=== PATIENT | male | born 1995 | race Caucasian/White ===

== ENCOUNTER 2021-07-26 18:38 | Outpatient (REF) | payer BC, SELFPAY ==
[2021-07-28 12:05] LABS: COVID-19 RT-PCR UVMMC Result Negative (Negative)
== END 2021-07-26 18:39 | disposition home or self-care (01) ==
LOC: NCHCN 18:38
PROVIDERS: Visit Provider Nurse Practitioner Family
DX: Z20.822 Contact with and (suspected) exposure to COVID-19 (principal)
CPT/HCPCS: U0003

== ENCOUNTER 2022-03-09 00:25 | Emergency (ER) | payer BC, SELFPAY ==
[2022-03-09] VITALS (90 sets, daily range): BP systolic 103–149; BP diastolic 55–83; PULSE 63–101; RESP 13–26; TEMP 36.2–36.8; O2SAT 95–99
--- NOTE | 2022-03-09 00:30 | RT.EKG_ITS ---
APPROVED REPORT Exam: Resting ECG Reason for Exam: chest pain Patient Location: E HR:84 bpm ECG Measurements Heart Rate 84 AXIS AZ 155 P 63 QRSd 99 QRS -45 QT 351 T 36 QTc 415 Conclusion Sinus rhythm...normal P axis, V-rate 60- 99 LAD, consider left anterior fascicular block...axis(240,-40), S>R II III aVF
--- NOTE | 2022-03-09 00:30 | RT.EKG_ITS ---
APPROVED REPORT Exam: Resting ECG Reason for Exam: chest pain Patient Location: E HR:76 bpm ECG Measurements Heart Rate 76 AXIS TN 169 P 33 QRSd 97 QRS -32 QT 362 T 31 QTc 407 Conclusion Sinus rhythm...normal P axis, V-rate 60- 99 Inferior infarct, old...Q >35mS, II III aVF
--- NOTE | 2022-03-09 00:45 | DI.RAD_ITS ---
Exam(s) XR PORTABLE CHEST AP EXAM: XR PORTABLE CHEST AP CLINICAL HISTORY: chest pain. TECHNIQUE: 2D digital imaging was performed. COMPARISON: No exams were available for comparison FINDINGS: LUNGS: Clear. No pleural abnormality seen. HEART: Normal. MEDIASTINUM: Normal. OTHER FINDINGS: None. IMPRESSION: No acute pulmonary findings. DATA REPOSITORY: RADIATION DOSE DELIVERED: Total DLP
--- NOTE | 2022-03-09 00:59 | ED.GENADUL_ITS ---
Discharge Plan Disposition Patient Disposition: HOME Condition: Stable Discharge Details Clinical Impression: Chest pain, Elevated troponin Primary Care Provider: Ayaz Neal ED Provider: Berlin Whitfield Home Meds and New Rx's Prescriptions: Continued albuterol sulfate 90 mcg/actuation HFA aerosol inhaler 2 puff inhalation Q6H PRN (Reason: shortness of breath or wheezing) Qty: 6.7 0RF Rx Instructions: 2 puffs every 6 hours as needed for cough, wheeze, and/or SOB Discharge Instructions Additional Instructions: It is recommended that you follow-up with cardiology early next week. Please rest at home with no exertional activities until cleared by cardiology. Please take aspirin 325 mg daily. Please contact your primary care physician to arrange follow-up. Return to the ER immediately for any worsening or new concerning symptoms. If you develop any return of chest pain or shortness of breath please call [phone] return immediately for reassessment. Referrals: Ayaz Neal, [employer]PERATOR [Primary Care Provider] - Kathie Lamb MD [ [facility] STAFF PHYSICIAN] - Discharge Data Discharge Date/Time-TO BE ENTERED AT DEPARTURE: 03/09/22 09:14 Medical Decision Making 100??27-year-old male with no medical problems here with mild left anterior ch est discomfort started yesterday evening and has persisted. He has had recent nausea, vomiting, loose stool, fever and headache over the past few days. Consider ACS. EKG was reviewed and interpreted by me: Sinus rhythm, left axis deviation, no STEMI, no AL depression, nondiagnostic. Plan to check troponin. PERC applies. Consider pneumothorax. I will check chest x-ray. 239 -- cxr reviewed and interpreted by radiology: no acute findings Labs reviewed: troponin elevated. Covid negative. Concern for myocarditis given recent illness vs NSTEMI. Patient reassessed: continues to have mild discomfort. Will give nitro SL, start heparin infusion and give asa 325mg. Plan to admit for continued treatment. 250 -- I spoke with Dr. Awad, car electronics installer hospitalist, discussed ED presentation and course. He requests patient be held in the ED for delta troponin and recommends toradol and holding ACS treatment. -- Repeat troponin elevated minimally. 745 -- Patient was evaluated by hospitalist and cardiology consult was obtained by Dr. Garcia. Dr. Awad will discharge at recommendation of cardiology with close followup with cardiology next week. Lab Data Lab results reviewed: Yes I reviewed the patient's lab results. Labs: Laboratory Tests Range/Units 03/09/22 03/09/22 03/09/22 01:05 01:22 01:22 WBC (4.4-10.8) 10^3/uL 10.20 RBC (4.36-5.78) 10^6/uL 5.33 Hgb (13.5-17.5) g/dL 15.4 Hct (40.0-50.0) % 45.8 MCV (80-95) fL 86 MCH (27.0-33.0) pg 28.9 MCHC (32.0-36.0) % 33.6 RDW (11.8-14.1) % 12.2 Plt Count (130-400) 10^3/uL 269 MPV (8.0-11.0) fL 8.9 Immature Gran % 0.2 Neutrophils % 65.1 Lymphocytes % 18.9 Monocytes % 14.4 Eosinophils % 1.0 Basophils % 0.4 Nucleated RBC % (0.0-0.3) % 0.0 Absolute Neutrophils (1.2-6.7) 10^3/uL 6.64 Absolute Lymphocytes (1.2-3.4) 10^3/uL 1.93 Absolute Monocytes (0.1-0.8) 10^3/uL 1.47 H Absolute Eosinophils (0.0-0.7) 10^3/uL 0.10 Absolute Basophils (0.0-0.2) 10^3/uL 0.04 Sodium (136-145) mmol/L 139 Potassium (3.5-5.1) mmol/L 3.6 Chloride (98-107) mmol/L 102 Carbon Dioxide (21.0-32.0) mmol/L 28.1 Anion Gap (3-11) mmol/L 8.9 BUN (7-18) mg/dL 23 H Creatinine (0.70-1.30) mg/dL 1.0 Estimated GFR/1.73 m2 (mL/min/1.73m2) >= 60.00 Glucose (74-106) mg/dL 102 Calcium (8.5-10.1) mg/dL 8.5 Total Bilirubin (0.2-1.0) mg/dL 0.3 AST (15-37) U/L 26 ALT (16-63) U/L 57 Alkaline Phosphatase (46-116) U/L 118 H Troponin I (<or=60) ng/L 86 H* Total Protein (6.4-8.2) g/dL 7.4 Albumin (3.4-5.0) g/dL 3.6 COVID-19 Source Nasopharynx SARS-CoV-2 (PCR) (Negative) Negative Influenza Type A (PCR) (Negative) Negative Influenza Type B (PCR) (Negative) Negative RSV (PCR) (Negative) Negative HPI General Mode of arrival: ambulatory . Date/Time Provider Initiated Documentation: 03/09/22 00:27 . Limitations to Documentation: no limitations . Information obtained by: patient . HPI Narrative: 27-year-old male with no medical problems presents with chief complaint of chest discomfort. Patient notes that he started develop chest discomfort around 6 PM yesterday. Pain has persisted. Pain is mild, localized to left anterior chest, described as pressure. Patient also has some mild discomfort in his left arm. Patient denies associated shortness of breath. Patient does state that he has not been feeling well this week. He has had a headache that came on Friday. He then developed diarrhea which she had for a few days. He was feeling generally unwell and did have a nausea with an episode of vomiting. Patient also notes fever during this time. He took off from work for a couple days and then was feeling better and able to return to work. Patient is not vaccinated for COVID. He did take 2 rapid antigen test today that were negative. Related Data Home Medications Medication Instructions Recorded Confirmed albuterol sulfate 90 mcg/actuation 2 puff inhalation Q6H PRN 07/26/21 03/13/22 aerosol inhaler shortness of breath or wheezing #6.7 grams Previous Rx's Medication Instructions Recorded albuterol sulfate 90 mcg/actuation 2 puff inhalation Q6H PRN 07/26/21 aerosol inhaler shortness of breath or wheezing #6.7 grams Allergies Allergy/AdvReac Type Severity Reaction Status Date / Time No Known Allergies Allergy Verified 03/13/22 11:42 General Stated Complaint: Chest Pain VON: 2 Review of Systems All systems reviewed & are unremarkable except as noted in HPI and below Constitutional Constitutional: Denies fever(s) Cardiovascular Cardiovascular: Reports as per HPI Gastrointestinal Gastrointestinal: Reports as per HPI PFSH All Active Problems Chest pain (Acute) Elevated troponin (Acute) Overweight (Acute) Family History Mother No problems noted. Father No problems noted. Sister No problems noted. Social History Smoking/Tobacco Use Status: Never Second Hand Exposure: Yes Smoking risk assessment performed?: Yes Alcohol Intake: current Alcohol Intake frequency: holidays/special occasions only Alcohol type: beer Drug use: Never Substance use type: does not use Caregiver/Support person: Yes Household members: spouse and children Housing: house Communication Needs: None Do you need help understanding health information?: Often Pets and animals: Yes Pets and animals: cat(s), dog(s) and horse(s) Sexually active: Yes Do you think of yourself as: straight/heterosexual Current gender identity: male What is your relationship status?: How often do you talk on the phone with friends or family?: three or more times per week How often do you get together with friends or relatives?: once per week How often do you attend religious or faith services?: decline to answer Do you belong to any clubs or organized social groups?: no Panel score (0-1 are the most socially isolated patients): 2 What type of physical activity do you participate in: other Details: fishing,hunting Duration: 15-30 minutes/day Frequency: 1-2 times per week Heavenly/Samaritan: None Special heavenly needs: No Seatbelt use: always Helmet use: Yes Helmet use: always Drive intox or ride w/intox shuttle driver: No Do you feel safe at home: Yes Do you feel safe in your relationship?: Yes Exam Const General: cooperative and no acute distress HENMT Mouth: moist mucous membranes Eyes Conjunctivae: normal conjunctivae Sclera: normal sclerae Neck Neck: trachea midline and supple Resp Auscultation: clear to auscultation bilaterally, no rales, no rhonchi and no wheezes Cardio Rate: regular rate and not tachycardic Rhythm: regular rhythm Heart Sounds: S1 normal, S2 normal, no gallops, no murmurs and no rubs GI Palpation: soft, not firm, no guarding, no masses, not rigid and nontender Skin General skin exam: no rashes or lesions noted Neuro General: patient alert, patient awake, patient oriented x3 and tone normal Extrem General: no calf tenderness and no edema Psych Appearance: grossly normal Mental Status: mental status grossly normal Speech and Movement: speech and movement normal Course Vital Signs Vital signs: Vital Signs Temperature 36.2 C L 03/09/22 00:31 Pulse 92 H 03/09/22 00:31 Respiratory Rate 16 03/09/22 00:31 Blood Pressure 138/81 03/09/22 00:31 Pulse Oximetry 97 03/09/22 00:31 Temperature 36.2 C L 03/09/22 00:31 Temperature Source Skin 03/09/22 00:31 Pulse 92 H 03/09/22 00:31 Respiratory Rate 16 03/09/22 00:34 Respiratory Effort Non-Labored 03/09/22 00:34 Respiratory Depth Normal 03/09/22 00:34 Respiratory Pattern Normal 03/09/22 00:34 Blood Pressure 138/81 03/09/22 00:31 Blood Pressure Position Sitting 03/09/22 00:31 Pulse Oximetry 97 03/09/22 00:31 Oxygen Delivery Method Room Air 03/09/22 00:31 Oxygen Flow Rate 0 03/09/22 00:31 Pain Level 3 03/09/22 00:34 Critical Care Time Critical Care Time Critical Care Time: Yes Total Critical Care Time: 45 Attestation: I spent greater than 45 minutes addressing this patient's immediate life threats. Please see MDM section of note. This time was spent engaged in work directly related to the patient's care, exclusive of separate procedures, and failure to initiate these interventions would have likely resulted in clinically significant or life threatening deterioration in the patient's condition. PAWSS Have you Been Recently Intoxicated or Drunk Within the Last 30 days?: No Have you Ever Experienced Previous Episodes of Alcohol Withdrawal?: No Have you ever Experienced Withdrawal Seizures?: No Have you ever Experienced Delirium Tremens(DT)s?: No Have you ever undergone Alcohol Rehabilitation Treatment (i.e, inpt ot outpatient treatment programs)?: No Have you ever Experienced Blackouts?: No Have you ever Combined Alcohol with other Downers within the last 90 days?: No Have you ever Combined Alcohol with any other Substance of Abuse during the last 90 days?: No Positive Blood Alcohol level on Presentation? [PCS.BAL]: No Evidence of Increased Autonomic Activity (i.e. HR>120, tremor, sweating, agitation, nausea)?: No Result: 0
[2022-03-09 01:33] LABS: Abs Immature Grans 0.02 10^3/uL (0.0-0.06); Absolute Basophil Count 0.04 10^3/uL (0.0-0.2); Absolute Lymphocyte Count 1.93 10^3/uL (1.2-3.4); Absolute Monocyte Count 1.47 10^3/uL (0.1-0.8); Absolute Neutrophil Count 6.64 10^3/uL (1.2-6.7); Basophils % 0.4; HCT 45.8 % (40.0-50.0); HGB 15.4 g/dL (13.5-17.5); Immature Grans % 0.2; Lymphocytes % 18.9; MCH 28.9 pg (27.0-33.0); MCHC 33.6 % (32.0-36.0); MCV 86 fL (80-95); MPV 8.9 fL (8.0-11.0); Monocytes % 14.4; Neutrophils % 65.1; Platelet Count 269 10^3/uL (130-400); RBC 5.33 10^6/uL (4.36-5.78); RDW 12.2 % (11.8-14.1); RDW-SD 38.5 fL
[2022-03-09 02:16] LABS: ALT 57 U/L (16-63); AST 26 U/L (15-37); Albumin 3.6 g/dL (3.4-5.0); Alkaline Phosphatase 118 U/L (46-116); Anion Gap 8.9 mmol/L (3-11); BUN 23 mg/dL (7-18); Bilirubin, Total 0.3 mg/dL (0.2-1.0); CO2 28.1 mmol/L (21.0-32.0); Calcium 8.5 mg/dL (8.5-10.1); Chloride 102 mmol/L (98-107); Glucose 102 mg/dL (74-106); Potassium 3.6 mmol/L (3.5-5.1); Sodium 139 mmol/L (136-145); Total Protein 7.4 g/dL (6.4-8.2)
[2022-03-09 02:19] LABS: Troponin I 86 ng/L (<or=60)
[2022-03-09 02:19] LABS: COVID-19 PCR Negative (Negative); Influenza A PCR Negative (Negative); Influenza B PCR Negative (Negative); RSV PCR Negative (Negative)
--- NOTE | 2022-03-09 02:28 | DI.VRAD_ITS ---
PROCEDURE INFORMATION: Exam: XR Chest Exam date and time: 03/09/2022 1:22 AM Age: 27 years old Clinical indication: Chest wall pain; Additional info: Chest pain TECHNIQUE: Imaging protocol: XR of the chest. Views: 1 view. COMPARISON: No relevant prior studies available. FINDINGS: Lungs: Unremarkable. No consolidation. Pleural spaces: Unremarkable. No pleural effusion. No pneumothorax. Heart/Mediastinum: Unremarkable. No cardiomegaly. Bones/joints: Unremarkable. IMPRESSION: No acute findings. Dictated and Authenticated by: Irais Vieyra MD. Ordering:RODRIGO Slade MD
[2022-03-09 02:30] LABS: Source Nasopharynx
[2022-03-09] MEDS: Aspirin 325 MG TAB PO (02:47)
[2022-03-09] MEDS: nitroGLYcerin 0.4 MG TAB SL (02:47)
[2022-03-09 03:01] LABS: Lab Add On Test DONE
[2022-03-09 03:04] LABS: ESR 5 mm/hr (0-15)
[2022-03-09] MEDS: Normal Saline Flush 10 ML SYR IVP (03:43)
[2022-03-09] MEDS: Ketorolac 30 MG/ML VIAL IVP (03:43)
[2022-03-09 03:47] LABS: PTT Activated 27.6 sec (21.0-27.5)
[2022-03-09 05:40] LABS: Troponin I 98 ng/L (<or=60)
[2022-03-09 07:55] LABS: Troponin I 96 ng/L (<or=60)
--- NOTE | 2022-03-09 07:56 | W.MEDCONSULT ---
Date of service: 03/09/22 Time of Service: 07:57 Assessment and Plan Assessment and plan (1) Chest pain: Status: Acute Assessment and plan: Nonischemic chest pain probably due to myocarditis related to recent GI viral illness. I faxed over his EKGs and discussed the case with [facility] cardiology speaking with Dr. Ciara Huynh who reviewed the EKG's and discussed the case with me. She feels that he has a mild myocarditis from his recent GI viral illness, despite the lack of elevated inflammatory markers (i.e. WBC, ESR). She did not see any signs of pericarditis on his EKG nor did she see any evidence for ischemia or injury pattern. She agreed with me that we could send this gentleman home w/ close cardiology follow up next week w/ a formal echocardiogram next week, however, with the caveat that should he get any further chest pain/pressure/discomfort or dyspnea, palpitations, lightheadedness or dizziness then he should immediately return to the ED. I discussed this w/ Dr. Berlin Whitfield from our ED. Dr. Slade and I agree that it would be prudent for the patient to remain on an aspirin 81 mg daily. I spoke w/ Mendel in our radiology department to see if we had a protocol for CT coronary angiography and we do not. Furthermore we have a limited supply of iv contrast d/t national shortage. Our ED will set him up for follow up echocardiogram next week and make referral for cardiology close follow up in the next week. (2) Elevated troponin: Status: Acute Assessment and plan: probable myocarditis secondary to receNT GI viral gastroenteritis. 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 Patient developed diarrhea 3 days prior to his presentation to the emergency department not associated with melena or hematochezia no fever or rigors and no shortness of breath or chest discomfort. His 2-year-old daughter has similar GI illness. The patient had no URI type symptoms such as nasal congestion or drainage or sinus pressure or earache. Last night around 6 PM he developed nonexertional chest tightness that radiated across the left side of his chest that waxed and waned from 6 PM until it was relieved in the emergency department around 3 AM. There was no shortness of breath nor any nausea or diaphoresis. Nor did he have any palpitations. The discomfort traveled into his left arm. No pleuritic component to his pain and no relief or worsening w/ activity or with lying/or sitting forward. There is no sharp ripping sensation in his chest. No radiation to his back. Despite his work with heavy machinery and mechanical work for the [employer] he has never had any exertional chest pain or pressure. He has no history of diabetes or hypertension or smoking history. Did have a maternal uncle in his 50s from an NH. Work-up in the ED included routine labs, nasal swab PCR for COVID-19 as well as RSV and influenza all of which were negative. CBC was within normal limits, CMP was within normal limits. Initial troponin I was elevated at 86 ng/L which was drawn at 1:22 AM with a subsequent troponin I level at 4:30 AM and 7:25 AM also came back elevated but plateaued at 98 and 96. Serial EKGs were obtained at 12:35 AM and again at 4:35 AM. Rhythm is sinus rhythm with left axis deviation but no ischemic or injury pattern is seen. Chest x-ray was read as showing no acute findings. Patient was treated with aspirin 325 mg along with a single sublingual nitroglycerin tablet and subsequently given Toradol 30 mg IV push. The aspirin and nitroglycerin were given at 2:47 AM whereas the ketorolac did not get infused until 3:43 AM. Patient reports relief of his discomfort but 20 to 30 minutes after aspirin and nitroglycerin. He has been pain-free ever since. Review of Systems All systems reviewed & are unremarkable except as noted in HPI and below PFSH All Active Problems Chest pain (Acute) Elevated troponin (Acute) Overweight (Acute) Family History Mother No problems noted. Father No problems noted. Sister No problems noted. Social History Smoking/Tobacco Use Status: Never Second Hand Exposure: Yes Smoking risk assessment performed?: Yes Alcohol Intake: current Alcohol Intake frequency: holidays/special occasions only Alcohol type: beer Drug use: Never Substance use type: does not use Caregiver/Support person: Yes Household members: spouse and children Housing: house Communication Needs: None Do you need help understanding health information?: Often Pets and animals: Yes Pets and animals: cat(s), dog(s) and horse(s) Sexually active: Yes Do you think of yourself as: straight/heterosexual Current gender identity: male What is your relationship status?: How often do you talk on the phone with friends or family?: three or more times per week How often do you get together with friends or relatives?: once per week How often do you attend sabianist or christianity services?: decline to answer Do you belong to any clubs or organized social groups?: no Panel score (0-1 are the most socially isolated patients): 2 What type of physical activity do you participate in: other Details: fishing,hunting Duration: 15-30 minutes/day Frequency: 1-2 times per week Heavenly/Temple: None Special heavenly needs: No Seatbelt use: always Helmet use: Yes Helmet use: always Drive intox or ride w/intox refuse driver: No Do you feel safe at home: Yes Do you feel safe in your relationship?: Yes Exam Narrative Exam Narrative: Young male who is sitting up on an emergency room gurney resting in no discomfort or distress. His vital signs are stable with blood pressure throughout the night and into the morning running in the 110s to 120s with the highest being 149/74 at 2:46 AM currently blood pressures running 124/69. Heart rate has been in the 70s sinus rhythm with no arrhythmias overnight. Highest heart rate was 97 at 2:46 AM. His pulse oximetry is running 97 to 98%. He is remained on room air. He is afebrile at 36.2. His weight is 77.1 kg. HEENT is unremarkable Neck is supple with normal carotid pulses no JVD no bruits Lungs are clear to auscultation Heart is regular rate and rhythm with normal S1 and S2 heart tones with no murmur rub gallop and no palpable thrill or heave. I cannot elicit any kind of a rub even with having him leaning forward. Abdomen soft nontender normal bowel sounds no bruits Pulses are equal. Results Last Vital Signs Temp 36.2 C L 03/09/22 00:31 Pulse 70 03/09/22 07:45 Resp 22 03/09/22 07:50 BP 118/68 03/09/22 07:45 Pulse Ox 97 03/09/22 06:10 Labs Result diagrams: 03/09/22 01:22 03/09/22 01:22 Labs: Laboratory Results - last 24 hr 03/09/22 03/09/22 03/09/22 01:05 01:22 01:22 WBC RBC Hgb Hct MCV MCH MCHC RDW Plt Count MPV Immature Gran % Neutrophils % Lymphocytes % Monocytes % Eosinophils % Basophils % Nucleated RBC % Absolute Neutrophils Absolute Lymphocytes Absolute Monocytes Absolute Eosinophils Absolute Basophils ESR APTT Sodium 139 Potassium 3.6 Chloride 102 Carbon Dioxide 28.1 Anion Gap 8.9 BUN 23 H Creatinine 1.0 Estimated GFR/1.73 m2 >= 60.00 Glucose 102 Calcium 8.5 Total Bilirubin 0.3 AST 26 ALT 57 Alkaline Phosphatase 118 H Troponin I Cancelled 86 H* Total Protein 7.4 Albumin 3.6 COVID-19 Source Nasopharynx SARS-CoV-2 (PCR) Negative Influenza Type A (PCR) Negative Influenza Type B (PCR) Negative RSV (PCR) Negative Add-On Test Request 03/09/22 03/09/22 03/09/22 01:22 01:22 01:22 WBC 10.20 RBC 5.33 Hgb 15.4 Hct 45.8 MCV 86 MCH 28.9 MCHC 33.6 RDW 12.2 Plt Count 269 MPV 8.9 Immature Gran % 0.2 Neutrophils % 65.1 Lymphocytes % 18.9 Monocytes % 14.4 Eosinophils % 1.0 Basophils % 0.4 Nucleated RBC % 0.0 Absolute Neutrophils 6.64 Absolute Lymphocytes 1.93 Absolute Monocytes 1.47 H Absolute Eosinophils 0.10 Absolute Basophils 0.04 ESR 5 APTT Sodium Potassium Chloride Carbon Dioxide Anion Gap BUN Creatinine Estimated GFR/1.73 m2 Glucose Calcium Total Bilirubin AST ALT Alkaline Phosphatase Troponin I Total Protein Albumin COVID-19 Source SARS-CoV-2 (PCR) Influenza Type A (PCR) Influenza Type B (PCR) RSV (PCR) Add-On Test Request DONE 03/09/22 03/09/22 03/09/22 03:19 04:30 05:52 WBC RBC Hgb Hct MCV MCH MCHC RDW Plt Count MPV Immature Gran % Neutrophils % Lymphocytes % Monocytes % Eosinophils % Basophils % Nucleated RBC % Absolute Neutrophils Absolute Lymphocytes Absolute Monocytes Absolute Eosinophils Absolute Basophils ESR APTT 27.6 H Sodium Potassium Chloride Carbon Dioxide Anion Gap BUN Creatinine Estimated GFR/1.73 m2 Glucose Calcium Total Bilirubin AST ALT Alkaline Phosphatase Troponin I 98 H* Cancelled Total Protein Albumin COVID-19 Source SARS-CoV-2 (PCR) Influenza Type A (PCR) Influenza Type B (PCR) RSV (PCR) Add-On Test Request 03/09/22 07:25 WBC RBC Hgb Hct MCV MCH MCHC RDW Plt Count MPV Immature Gran % Neutrophils % Lymphocytes % Monocytes % Eosinophils % Basophils % Nucleated RBC % Absolute Neutrophils Absolute Lymphocytes Absolute Monocytes Absolute Eosinophils Absolute Basophils ESR APTT Sodium Potassium Chloride Carbon Dioxide Anion Gap BUN Creatinine Estimated GFR/1.73 m2 Glucose Calcium Total Bilirubin AST ALT Alkaline Phosphatase Troponin I 96 H* Total Protein Albumin COVID-19 Source SARS-CoV-2 (PCR) Influenza Type A (PCR) Influenza Type B (PCR) RSV (PCR) Add-On Test Request Point of Care Ultrasound Note: [id number] echocardiogram was performed obtaining views of the parasternal long axis, parasternal short axis, apical four-chamber, apical 5 chamber, subxiphoid views. No pericardial effusion was seen. Patient had normal LV function seen in multiple views with no regional wall motion abnormalities. Parasternal short axis was seen in the mid ventricular level at the papillary level and then scanned down through the apex and then up towards the base of the heart. No aortic aneurysm was seen. RV function. To be normal and RV size was normal. IVC was normal. Color Doppler interrogation of the aortic and mitral valve did not reveal any regurgitation.
--- NOTE | 2022-03-09 07:59 | NUR.NOTE ---
critical Troponin result 96 given by Shel[place] at [address] Roseann Orozco notified.
--- NOTE | 2022-03-09 08:02 | NUR.NOTE ---
consultation to Dr. Lamb-director revenue, Myocarditis vs. ACS, early week of 03/10/22 ALOB
== END 2022-03-09 09:14 | disposition home or self-care (01) ==
PROVIDERS: Internal Medicine; Emergency Provider Student in an Organized Health Care Education/Training Program; PCP Nurse Practitioner Family
DX: R07.9 Chest pain, unspecified (principal); R79.89 Other specified abnormal findings of blood chemistry
CPT/HCPCS: 36415; 80053; 85652; 87637; 93005; 96374; 99283; 71045; 84484; 85025; 85730; 93010; 99254; 99281; J1885

== ENCOUNTER → 2022-04-05 00:51 | Outpatient (CLI) | payer BC, SELFPAY ==
--- NOTE | 2022-04-05 13:48 | DI.US_ITS ---
APPROVED REPORT EXAM: Comprehensive 2D, Doppler, and color-flow Echocardiogram Patient Location: Out-Patient Enamel Cracker: Mandie Chow RDCS (AE) Indications: Recent chest pain, Elevated troponin Other Information Study Quality: Good Conclusion Normal left ventricular wall thickness and chamber size. Estimated ejection fraction is 60%. Wall m otion is normal Normal right ventricular size and systolic function Both atria are normal in size There is no structural or hemodynamically significant valvular disease Wall motion Left Ventricle The left ventricle is normal size. The left ventricular systolic function is normal. The left ventric ular ejection fraction is within the normal range. There is normal left ventricular wall thickness. T here is normal LV segmental wall motion. There is no ventricular septal defect visualized. LVEF is 60 %. Right Ventricle The right ventricle is normal size. The right ventricular systolic function is normal. Atria The left atrium size is normal. The right atrium size is normal. The interatrial septum is intact wit h no evidence for an atrial septal defect. Aortic Valve The aortic valve is normal in structure. There is no aortic valvular stenosis. No aortic regurgitatio n is present. Mitral Valve The mitral valve is normal in structure. No evidence of mitral valve stenosis. Trace mitral regurgita tion. Tricuspid Valve The tricuspid valve is normal in structure. There is no tricuspid valve stenosis. Trace tricuspid reg urgitation. Unable to assess PA pressure. Pulmonic Valve The pulmonary valve is normal in structure. There is no pulmonic valvular stenosis. Trace pulmonic re gurgitation. Great Vessels The aortic root is normal in size. The ascending aorta is normal in size. Aortic arch is normal in ca liber. IVC is normal in size and collapses >50% with inspiration. Pericardium There is no pericardial effusion. 2D Dimensions IVSD d PLAX 0.91 cm M: 0.6-1.2 LV Vol A2C d MOD 101.3 mL LVPW d PLAX 0.91 cm M: 0.6 - 1.2 LV Vol A4C d MOD 117.4 mL LVID d PLAX 5.02 cm M: 4.2 - 5.8 LA vol/ BSA A2C s A-L 30.6 mL/m2 LVDs 3.30 cm M: 2.5 - 4.0 LA vol/ BSA A4C s A-L 25.9 mL/m2 Ao Root d 2.98 cm M: 3.1 - 3.7 LA Vol/ BSA Biplane s A-L 28.2 mL/m2 RA Area A4C 14.46 cm2 LA Area A4C s MOD 16.11 cm2 RA Vol/ BSA A4C s A-L 22.2 mL/m2 LA Area A2C s MOD 17.51 cm2 Ao Asc Diam d 2.79 cm M: 2.6 - 3.4 LV EF A4C MOD 60.6 % LV EF Teichholz 62.2 % LV EF A2C MOD 59.6 % LVEF (Rhoades's) 59.87 % M: 52 - 72 LV EF Biplane MOD 59.9 % LV Volume 89.82 mL M: 62 - 150 SV 65.19 mL LV Volume Index 58.32 mL/m2 M: 34 - 74 SV Index 42.35 mL/m2 LV Vol Biplane MOD 108.9 mL FS 33.65 % M-Mode TAPSE 2.68 cm (M/F) >1.7 LV Diastology MV E' medial 0.133 (>0.07 m/s) E/A Ratio 1.5 LV E/e MED 5.70 (<14) MV E Vmax 0.76 (0.4-1.3 m/s) MV E' lateral 0.164 (>0.1 m/s) MV A Vmax 0.50 (0.4-1.3 m/s) LV E/e LAT 4.65 (<14) MV E/A Ratio 1.42 MV E/E' medial 5.73 MV E/E' lateral 4.66 Aortic Valve LVOT Area 3.61 cm2 AoV Area Vmax 2.94 cm2 LVOT Vmax 1.15 m/s AoV Area/ BSA (Vmax) 1.91 cm2/m2 LVOT Mean Luis Enrique. 0.69 m/s SB Mean Luis Enrique. 2.52 cm2 LVOT Peak Grad 5.3 mmHg SB Mean Luis Enrique. Index 1.64 cm2/m2 LVOT Mean Grad 2.4 mmHg LVOT VTI 0.216 m LVOT Diam s 2.10 cm AoV Vmax 1.41 m/s Velocity Ratio 0.81 AoV Mean Luis Enrique. 0.99 m/s AoV Peak Grad 7.9 mmHg LVOT SV 77.72 mL AoV Mean Grad 4.4 mmHg AoV VTI 0.237 m AoV Area VTI 3.28 cm2 AoV Area/ BSA (VTI) 2.13 cm/m2 Mitral Valve MV DT 257 (160-240 msec) MV PHT 75 msec MV Area PHT 2.95 cm2 MV VTI 0.247 m MV Area VTI 3.15 (4.0-6.0 cm2) Pulmonary Valve PV Vmax 0.99 (0.5-1.5 m/s) RVOT Peak Gr. 2.70 mmHg PV Peak Grad 3.9 mmHg RVOT Mean Gr. 1.25 mmHg PV Mean Grad 2.0 mmHg RVOT VTI 0.141 m PV VTI 0.195 m RVOT Vmax 0.82 m/s
== END ==
PROVIDERS: PCP Nurse Practitioner Family; Visit Provider Nurse Practitioner Family
DX: R07.9 Chest pain, unspecified (principal); R77.8 Other specified abnormalities of plasma proteins
CPT/HCPCS: 93306

== ENCOUNTER 2022-04-16 02:34 | Outpatient (CLI) | payer BC, SELFPAY ==
[2022-04-16 13:14] LABS: Calculated LDL 146 mg/dL (<100); Cholesterol 208 mg/dL (<200); HDL Cholesterol 50 mg/dL (40-60); Triglyceride 62 mg/dL (<150)
[2022-04-16 13:20] LABS: Hemoglobin A1C 5.6 % (<5.7)
== END 2022-04-16 02:35 | disposition home or self-care (01) ==
LOC: LOS 02:34
PROVIDERS: PCP Nurse Practitioner Family; Visit Provider Nurse Practitioner Family
DX: Z13.220 Encounter for screening for lipoid disorders (principal); Z13.1 Encounter for screening for diabetes mellitus
CPT/HCPCS: 36415; 80061; 83036

== ENCOUNTER 2022-06-07 09:11 | Outpatient (CLI) | payer BC, SELFPAY ==
--- NOTE | 2022-06-07 09:00 | RT.EKG_ITS ---
APPROVED REPORT Exam: Resting ECG Reason for Exam: NPW, Baseline needed Patient Location: O HR:88 bpm ECG Measurements Heart Rate 88 AXIS KS 144 P 62 QRSd 91 QRS -30 QT 342 T 44 QTc 414 Conclusion Sinus rhythm...normal P axis, V-rate 50- 99 Left axis deviation...QRS axis (-30,-90)
== END 2022-06-07 09:12 | disposition home or self-care (01) ==
LOC: DI.CARD 09:12
PROVIDERS: PCP Nurse Practitioner Family; Visit Provider Internal Medicine Cardiovascular Disease
DX: I51.4 Myocarditis, unspecified (principal); R94.31 Abnormal electrocardiogram [ECG] [EKG]
CPT/HCPCS: 93010

== ENCOUNTER 2022-06-27 10:55 | Emergency (ER) | payer OTHER, SELFPAY ==
[2022-06-27 11:03] VITALS: BP 127/78; PULSE 77; RESP 14; TEMP 36.4; O2SAT 96
--- NOTE | 2022-06-27 13:31 | NUR.NOTE ---
pt states symptoms are improving Nursing Note:
--- NOTE | 2022-06-27 14:09 | ED.GENADUL_ITS ---
Discharge Plan Disposition Patient Disposition: HOME Condition: Stable Discharge Details Clinical Impression: Chemical injury of left eye Primary Care Provider: Ayaz Neal ED Provider: Rosi Sanon Home Meds and New Rx's Prescriptions: No Action No Known Home Meds Discharge Instructions Instructions: Conjunctivitis (ED) Additional Instructions: Continue to rinse your eye for the rest of the afternoon. Please be seen by the corporate real estate specialist Dr. Guzman if any continued blurry vision or irritation. He may return to work. Follow up with primary care provider in 3-5 days. Return to ED sooner if any worsening or concerns. Increase oral fluids. Please take Tylenol or Ibuprofen with food every 4-6 hours as needed for pain and swelling. Stand Alone Forms: Work Release Referrals: Ayaz Neal, MEDICAL BILLING MANAGER [Primary Care Provider] - 1 week HPI General Mode of arrival: ambulatory . Date/Time Provider Initiated Documentation: 06/27/22 10:55 . Limitations to Documentation: no limitations . Information obtained by: patient, RN notes reviewed and old records reviewed . HPI Narrative: 27-year-old male presents with left eye brake fluid contact. This occurred while at work. He did do Eye rinse station for approximately 15 minutes. Related Data Home Medications Medication Instructions Recorded Confirmed Unknown [No Known Home Meds] 06/27/22 06/27/22 Allergies Allergy/AdvReac Type Severity Reaction Status Date / Time No Known Allergies Allergy Verified 06/27/22 14:04 General Stated Complaint: EyeProblem VON: 3 Review of Systems Eyes Eyes: Reports blurry vision, Reports irritation and Denies loss of vision Neurologic Neurologic: Denies loss of vision PFSH All Active Problems (Updated 06/27/22 @ 14:15 by Rosi Sanon NP) Chemical injury of left eye (Acute) Overweight (Acute) Family History Mother No problems noted. Father No problems noted. Sister No problems noted. Social History Smoking/Tobacco Use Status: Never Second Hand Exposure: Yes Smoking risk assessment performed?: Yes Alcohol Intake: current Alcohol Intake frequency: holidays/special occasions only Alcohol type: beer Drug use: Never Substance use type: does not use Caregiver/Support person: Yes Household members: spouse and children Housing: house Communication Needs: None Do you need help understanding health information?: Often Pets and animals: Yes Pets and animals: cat(s), dog(s) and horse(s) Sexually active: Yes Do you think of yourself as: straight/heterosexual Current gender identity: male What is your relationship status?: How often do you talk on the phone with friends or family?: three or more times per week How often do you get together with friends or relatives?: once per week How often do you attend yarsanism or jain services?: decline to answer Do you belong to any clubs or organized social groups?: no Panel score (0-1 are the most socially isolated patients): 2 What type of physical activity do you participate in: other Details: fishing,hunting Duration: 15-30 minutes/day Frequency: 1-2 times per week Heavenly/Christianity: None Special heavenly needs: No Seatbelt use: always Helmet use: Yes Helmet use: always Drive intox or ride w/intox school boat driver: No Do you feel safe at home: Yes Do you feel safe in your relationship?: Yes Exam Eyes Alignment and Position: alignment normal Periorbital: periorbital findings normal Eyelids: eyelids normal Conjunctivae: conjunctival abnormality left conjunctival injection diffuse Course Vital Signs Vital signs: Vital Signs Temperature 36.4 C 06/27/22 11:03 Pulse 77 06/27/22 11:03 Respiratory Rate 14 06/27/22 11:03 Blood Pressure 127/78 06/27/22 11:03 Pulse Oximetry 96 06/27/22 11:03 Temperature 36.4 C 06/27/22 11:03 Temperature Source Skin 06/27/22 11:03 Pulse 77 06/27/22 11:03 Respiratory Rate 14 06/27/22 11:03 Respiratory Effort 06/27/22 14:05 Blood Pressure 127/78 06/27/22 11:03 Blood Pressure Position Sitting 06/27/22 11:03 Pulse Oximetry 96 06/27/22 11:03 Oxygen Delivery Method Room Air 06/27/22 11:03 Oxygen Flow Rate 0 06/27/22 11:03 Pain Level 3 06/27/22 11:03
== END 2022-06-27 14:26 | disposition home or self-care (01) ==
PROVIDERS: Emergency Provider Registered Nurse Emergency; PCP Nurse Practitioner Family
DX: T59.891A Toxic effect of other specified gases, fumes and vapors, accidental (unintentional), initial encounter (principal); T26.92XA Corrosion of left eye and adnexa, part unspecified, initial encounter; Y99.0 Civilian activity done for income or pay; Z77.22 Contact with and (suspected) exposure to environmental tobacco smoke (acute) (chronic)
CPT/HCPCS: 99281; 99282